=== PATIENT | female | born 1995 ===

== ENCOUNTER 2017-03-02 20:04 | Emergency (ER) | payer MEDICAID ==
[~2017-03-02 20:04] MED LIST: ATIVAN0.5 MG PO; HYDROCODON-ACE1 EAC4 PO; MAALOX DPS30 ML PO; SINGULAIR10 MG PO; TYLENOL EXTRA500 M1 PO; VENTOLIN HFA8 GM IH; ZOLOFT DPS50 MG PO
--- NOTE | 2017-03-04 04:09 | ER ---
ADMIT: 03/02/2017 RM/LOC: ER [facility] MR#: [id number] [address] [address] RENAE ALVARADO [address] [place] [address] Emergency Room Report SEX: F AGE: 21 : 1995 DATE: 03/02/2017 ADDENDUM: This patient comes to the ER because she is having shortness of breath. She has asthma. She ran out of her albuterol. On physical exam, she does have wheezing. She was given Decadron and a DuoNeb, which really relieved the shortness of breath. I wrote a prescription for prednisone. We will have her follow up with her primary. I also refilled her albuterol. Please see my T-sheet. PORSCHE Flaherty / Will Valenzuela MD / nasir JOB #: [id number] CC: Will Valenzuela MD, Attending Physician
[2017-03-14] MEDS ORDERED: PRENATAL VIT1 TAB PO (11:25)
[2017-03-14] MEDS ORDERED: ZANTAC DPS150 MG PO (11:26)
[2017-03-14] MEDS ORDERED: TUMS DPS500 MG PO (11:26)
[2017-03-14] MEDS ORDERED: PROMETRIUM200 MG (11:26)
[2017-06-25] MEDS ORDERED: PROAIR HFA8.5 GM IH (09:07)
[2017-06-25] MEDS ORDERED: PROVENTIL HFA6.7 GM IH (09:07)
[2017-06-25] MEDS ORDERED: ZOLOFT50 MG PO (09:07)
[2017-06-25] MEDS ORDERED: PRENATAL VITAM1 EAC6 PO (09:07)
[2017-06-25] MEDS ORDERED: TYLENOL EXTRA500 M1 PO (09:08)
[2017-06-25] MEDS ORDERED: FEOSOL-DPS325 MG PO (09:08)
[2017-06-25] MEDS ORDERED: FLAGYL-DPS500 MG PO (09:09)
== END 2017-03-02 21:20 | disposition home or self-care (01) ==
LOC: ER 20:04
DX: J45.901 Unspecified asthma with (acute) exacerbation (principal)

== ENCOUNTER 2017-03-11 22:40 | Observation (INO) | payer MEDICAID ==
[~2017-03-11] VITALS: Ht 162.6 cm; Wt 96.6 kg
--- NOTE | ~2017-03-11 | CO ---
ADMIT: 03/12/2017 RM/LOC: 217 [facility] MR#: [id number] 2620 [facility] [address] [place] [phone] RENAE ALVARADO [address] [place] [address] Consultation SEX: F AGE: 21 : 1995 DATE OF CONSULTATION: 03/12/2017 ATTENDING PHYSICIAN: Julio Lemus CONSULTING PHYSICIAN: Syeda Mcmillan MD HISTORY OF PRESENT ILLNESS: This is a 21-year-old G1, P0, with IUP at 24 weeks 5 days by 16-week ultrasound, presented last evening with complaints of pelvic pressure and loss of fluid. For the last several days, she had indicated that she had noticed that occasionally she would, when she was up on her feet at work, her underwear would be wet. She did not think she was losing urine. She does not endorse any contractions or vaginal bleeding and she does note good movement. Her has otherwise been uncomplicated. Upon presentation, cervical length was obtained and last night it was 1.4 cm. It was repeated this morning, it was 1.7 cm. AmniSure was negative x2. RADHA was 8.6 last night and 11.1 this morning. She did receive one dose of Rocephin for possible urinary tract infection last evening, and this morning the patient reports her pelvic pressure symptoms have completely resolved and denies any further symptoms of loss of fluid. PAST MEDICAL HISTORY: None. PAST SURGICAL HISTORY: None. SOCIAL HISTORY: She lives in [place], [place]. She denies any tobacco, alcohol, or drug use. MEDICATIONS: She takes vitamin daily. ALLERGIES: NO KNOWN DRUG ALLERGIES. FAMILY HISTORY: Noncontributory. The patient is . OB LABS: She sees Dr. Hollis in [place], [place] for her regular obstetrical care. Blood type is A positive. Antibody screen is negative. Rubella immune. VDRL is nonreactive. Urine culture is negative. Hepatitis B surface antigen is negative. HIV is negative. Ultrasound performed on 01/11/2017 indicates a gestational age of 16 weeks and 1 day with an EDC of 06/27/2017 and her ultimate due date is based off. She did have a normal anatomy scan at 20 weeks in [place]. PHYSICAL EXAMINATION: VITAL SIGNS: Blood pressure is 100/45, pulse is 94, respirations 16, and temperature is 96.7 degrees Fahrenheit. heart tones 135, moderate variability, positive accelerations (10 x 10). No decelerations noted. Hurt shows no contractions. GENERAL: The patient is in no acute distress. HEART: Regular rate and rhythm. No murmurs, rubs, or gallops. LUNGS: Clear to auscultation bilaterally to the bases. ABDOMEN: Gravid and nontender. ADMIT: 03/12/2017 RM/LOC: 217 [facility] MR#: [id number] [address] [place] [phone] [place] [address] Consultation SEX: F AGE: 21 : 1995 DIGITAL CERVICAL EXAM: Cervix is closed, about 50% effaced and -3 station, it is posterior and intermediate in consistency. EXTREMITIES: No significant edema. UA from last night was negative. UDS was negative. HIV was negative. GBS has been collected and is pending. Wet mount showed rare yeast. AmniSure was negative x2. ASSESSMENT AND PLAN: This is a 21-year-old G1, P0, with an intrauterine at 24 and 5/7th days. 1. Shortened cervix. Discussed she has past point of cerclage placement as she reached viability in greater than 24 weeks. Reviewed some evidence to support decreased risk of labor with micronized vaginal progesterone in women without prior and short cervix, if less than 24 weeks if continued to 36 weeks, and the patient is amenable to starting this. Given some effacement changes on digital examination, we will monitor for 24 hours and recheck cervix tomorrow. Given concern for , we will obtain followup ultrasound for growth today. Thank you for this interesting consultation. Syeda Mcmillan MD/ nasir JOB #: [id number] CC: Julio Lemus, Attending Physician Julio Lemus, Family Physician
[2017-03-14] MEDS ORDERED: PRENATAL VIT1 TAB PO (11:25)
[2017-03-14] MEDS ORDERED: ZANTAC DPS150 MG PO (11:26)
[2017-03-14] MEDS ORDERED: PROMETRIUM200 MG (11:26)
[2017-03-14] MEDS ORDERED: TUMS DPS500 MG PO (11:26)
--- NOTE | 2017-03-17 13:27 | DS ---
ADMIT: 03/12/2017 RM/LOC: 217 [facility] MR#: [id number] 2620 [facility] [address] [place], [place] [address] RENAE ALVARADO [facility] [address] [place] [address] Discharge Summary SEX: F AGE: 21 : 1995 ADMISSION DATE: 03/12/2017 DISCHARGE DATE: 03/13/2017 DIAGNOSES: 1. intrauterine on date of discharge of 24 weeks and 6 days by 16 week ultrasound. 2. Cervical shortening with cervical length on two separate ultrasounds during hospitalization of 1.4 cm and 1.7 cm. 3. Obesity. 4. GERD (gastroesophageal reflux disease). ADMITTING PHYSICIAN: Julio Lemus MD, Family Practice. CONSULTING PHYSICIAN: Syeda Mcmillan MD, TELEPHONE TECHNICIAN. HOSPITAL COURSE: This is a 21-year-old, G1, P0, who presented to [facility] on 03/11/2017 with complaints of pelvic pressure. Her FAISAL is 06/27/2017 by a 16-week ultrasound. She underwent a transvaginal ultrasound, which showed cervical length of 1.4 cm and an RADHA of 8.6 cm and fetus in vertex position. The scan was repeated the following morning and showed a cervical length of 1.7 cm and an RADHA of 11.1 cm. This time was in breech position. Until the same, had been uncomplicated. She had also presented with complaints of possible loss of fluid. Amnisure was performed twice and was negative both times. fibronectin was not able to be performed due to digital exams and sex prior to admission. Her urine was negative, UDS was negative, and HIV with testing as well. Wet mount did show rare yeast, and she was treated with Diflucan prior to discharge. She was started on vaginal Prometrium 200 mg at bedtime per vagina to reduce risk of , as she is at increased risk due to cervical shortening. Because she is greater than 24 weeks, she is not a candidate for cervical cerclage. On digital cervical exam, she was unchanged on examinations greater than 24 hours apart. Given improvement in symptoms and changed cervix, we will plan to discharge patient home. Did contact her physician's on-call partner prior to discharge and discussed the patient's case with him (Dr. Ludwig). She did have a follow-up growth scan performed in the hospital, which showed estimated weight of 799 g which is 11 pounds 12 ounces which is 65th percentile for 24 weeks, amniotic fluid index on that image was 9.8 cm, and the fetus was in breech position on that scan. DISCHARGE MEDICATIONS: 1. Vaginal Prometrium 200 mg at bedtime #30, no refills. She will need a refill of this and continue this until she is 36 weeks gestation or delivery if that occurs before. 2. Zantac 150 mg p.o. b.i.d., #60 no refills. She will need a refill of ADMIT: 03/12/2017 RM/LOC: 217 [facility] MR#: [id number] [address] [address] RENAE ALVARADO [address] [place] [address] Discharge Summary SEX: F AGE: 21 : 1995 this as well. She is to resume her albuterol inhaler as needed for symptoms. DISCHARGE INSTRUCTIONS: Patient was instructed to do modified bed rest. She declined a note for work. She was also instructed to practice pelvic rest for the remainder of her or until she reaches 36 weeks. Reviewed with patient the importance of presenting to care urgently if she develops any symptoms of increased pelvic pressure, vaginal bleeding, loss of fluid, or decreased movement. She understands that there is a risk for increased labor or delivery with short cervix. Given no cervical change, Celestone for lung maturity was not indicated during current hospitalization. Syeda Mcmillan MD/ adrien JOB #: [id number] CC: Julio Lemus MD, Attending Physician Julio Lemus MD, Family Physician
--- NOTE | 2017-03-29 08:25 | HP ---
ADMIT: 03/12/2017 RM/LOC: 217 [facility] MR#: [id number] [address] [facility] [address] [place] [phone] RENAE ALVARADO [address] [place] [address] History and Physical SEX: F AGE: 21 : 1995 DATE OF SERVICE: CHIEF COMPLAINT: Bladder pressure, urinary frequency, and tailbone pain. HISTORY OF PRESENT ILLNESS: This is a 21-year-old, 1, para 0, with an intrauterine at 24 weeks 5/7 days by EDC of 06/27/2017 by early ultrasound, presented to Labor and Delivery last night for the above complaints. The patient lives in [place]. Her preconstruction manager is Dr. Hollis, family physician, in [place]. She states that since evening, she has been having symptoms of increased pressure in her bladder. She states that she has pressure on her bladder, feels like she has to go but when she tries to go to the bathroom, nothing comes out often times. She also states that she started leaking some fluid on . She was unsure if this was pee discharge or amniotic fluid. She says this has been happening intermittently over the last 48 hours. She has also complained of some tailbone pain on the coccyx area. She states it hurts when she stands up or sits down. She is unsure if this is related. She denies any lower abdominal pains that come and go. She did think she had slight decreased movement yesterday. No vaginal bleeding. No other major complications with this thus far. Because of these symptoms, she presented herself to Labor and Delivery last night. The patient has been monitored overnight. No signs of contractions. heart tones have been reassuring. Workup showed negative AmniSure. UA did show 1+ protein, but otherwise was fairly negative. We did do a limited ultrasound showing an RADHA borderline at 8.6, and a cervical length of 1.4 cm with funneling. The patient was admitted with fluids, and is currently comfortable. She denies any complaints at this point in time. No lower pelvic pressure. No symptoms of contractions. PAST MEDICAL HISTORY: 1. Obesity. 2. Depression. 3. Mild intermittent asthma. MEDICATIONS: 1. vitamin. 2. Unknown depression medication. 3. An inhaler. ALLERGIES: NO KNOWN DRUG ALLERGIES. SOCIAL HISTORY: No alcohol, drug, or tobacco use. The patient works as a cashier host/hostess. FAMILY HISTORY: Mom did have some labors it sounded like. Otherwise noncontributory. REVIEW OF SYSTEMS: A 10-point review of systems obtained, per HPI, otherwise ADMIT: 03/12/2017 RM/LOC: 217 [facility] MR#: [id number] [address] [address] RENAE ALVARADO [address] [place] [address] History and Physical SEX: F AGE: 21 : 1995 negative. PHYSICAL EXAMINATION: VITAL SIGNS: Blood pressure 135/87, pulse 110, respirations 16, temperature 96.8. GENERAL: Alert and oriented x3. Does not appear in acute distress. Does not appear uncomfortable. HEENT: Pupils are equal, round, and reactive. Extraocular muscles intact. Throat clear. Trachea midline. HEART: Regular rate and rhythm. No murmurs, rubs, or gallops. LUNGS: Clear to auscultation bilaterally. No wheezes or crackles. ABDOMEN: Soft, nontender, and nondistended. No organomegaly. EXTREMITIES: With trace to 1+ edema. Symmetric. NEUROLOGICAL: Intact. No focal deficits. LABORATORY DATA: labs: A positive, antibody negative, GBS unknown, HIV negative. AmniSure negative, drug abuse screen negative. Urinalysis, 1+ protein. Ultrasound, RADHA of 8.6, cervical length 1.4 cm with funneling. ASSESSMENT: This is a 21-year-old with: 1. Cervical insufficiency greater than 24 weeks without apparent labor. 2. Borderline amniotic fluid index/oligohydramnios. 3. Intrauterine at 24 weeks 5/7 days. 4. Obesity. 5. Coccydynia. 6. Right flank pain this morning, currently gone. 7. Depression. 8. Mild intermittent asthma. PLAN: The patient has been admitted with fluids. We will recheck RADHA, cervical length, well being here this morning. Certainly concerned for cervical length. We will consult Obstetrics for further recommendations. As she is greater than 24 weeks, likely not a candidate for cerclage, and likely will need progesterone. With her cervical length being less than 2 cm, this concerns for delivery enough that no fFN was obtained at this time. We will see Obstetrics recommendations on steroids and further management. Appreciate their input in advance. Julio Lemus MD/ nasir JOB #: [id number] CC: Julio Lemus, Attending Physician Julio Lemus, Family Physician
--- NOTE | 2017-03-29 08:25 | DS ---
ADMIT: 03/12/2017 RM/LOC: 217 [facility] MR#: [id number] 2620 [facility] [address] [place], [place] [address] RENAE ALVARADO [address] [place] [address] General Discharge Summary SEX: F AGE: 21 : 1995 ADMISSION DATE: 03/12/2017 DISCHARGE DATE: 03/13/2017 FINAL DIAGNOSES: 1. Cervical insufficiency. 2. Pelvic pressure. 3. Intrauterine at 24 to 25 weeks. 4. Mild intermittent asthma. 5. Obesity. 6. Gastroesophageal reflux. 7. Lower back pain likely musculoskeletal. CONSULTATIONS: Obstetrics with Syeda Mcmillan MD LABS AND IMAGING: Please refer to hospital record. Cervical length was 1.4 cm with funneling. RADHA from 8 to 9. AmniSure negative x2. REASON FOR ADMISSION: Please refer to dictated H and P. Briefly, this is a patient who follows with Dr. Hollis for her OB care in [place]. She presented late on the evening on Tuesday with complaints of increased pelvic pressure and leakage of fluid. The patient was admitted for further workup and management. HOSPITAL COURSE: The patient was admitted with routine orders. She had an AmniSure x2, which was negative. Sterile spec, which was negative for wet prep. She did have an ultrasound to assess RADHA, which was slightly low but within normal limits. During this limited ultrasound, she also had noted shortened cervical length of approximately 1.4 cm with funneling. Therefore, because of this, Dr. Syeda Mcmillan was consulted. Dr. Mcmillan evaluated the patient. The patient did not appear to be in any labor. The patient was started on transvaginal progesterone. We will monitor over the next 24 hours with continued no signs of labor. There were no other major events during hospitalization. By day of discharge, the patient was in stable condition. She did have an ultrasound for anatomy showing her to be about 24 weeks and 5/7 days, 65% of weight, heart rate of 143, RADHA of 9.8 cm. Breech presentation. Group B strep obtained and was negative. She did have a kidney ultrasound as well to rule out stone as she was having right flank pain, which was negative thought to be musculoskeletal in nature. No other ADMIT: 03/12/2017 RM/LOC: 217 [facility] MR#: [id number] [address] [address] RENAE ALVARADO [address] [place] [address] General Discharge Summary SEX: F AGE: 21 : 1995 major events during hospitalization. Dr[address] Mcmillan was in agreement with discharge. DISCHARGE INSTRUCTIONS: The patient was instructed to take medications as prescribed. Follow up with her primary care provider/rails developer next week. Discussed signs and symptoms of labor including contractions, worsening pelvic pain, premature rupture of membranes, etc. The patient voiced agreement and understanding of and precautions. Discharge activities took approximately 35 minutes. Julio Lemus MD/ nasir JOB #: [id number] CC: Julio Lemus MD, Attending Physician Julio Lemus MD, Family Physician Nusrat Hollis MD
[2017-06-25] MEDS ORDERED: PRENATAL VITAM1 EAC6 PO (09:07)
[2017-06-25] MEDS ORDERED: PROAIR HFA8.5 GM IH (09:07)
[2017-06-25] MEDS ORDERED: ZOLOFT50 MG PO (09:07)
[2017-06-25] MEDS ORDERED: PROVENTIL HFA6.7 GM IH (09:07)
[2017-06-25] MEDS ORDERED: FEOSOL-DPS325 MG PO (09:08)
[2017-06-25] MEDS ORDERED: TYLENOL EXTRA500 M1 PO (09:08)
[2017-06-25] MEDS ORDERED: FLAGYL-DPS500 MG PO (09:09)
== END 2017-03-13 11:55 | disposition home or self-care (01) ==
LOC: BC 22:40 → 2LDRP 22:40 → BC 22:43 → 2LDRP 22:43 → BC 03-12 02:15 → 2LDRP 03-13 11:55
PROVIDERS: ADMIT Family Medicine
DX: O26.872 Cervical shortening, second trimester (principal); O60.02 Preterm labor without delivery, second trimester; Z3A.24 24 weeks gestation of pregnancy; E66.9 Obesity, unspecified; K21.9 Gastro-esophageal reflux disease without esophagitis; J45.20 Mild intermittent asthma, uncomplicated; F32.9 Major depressive disorder, single episode, unspecified; Z68.36 Body mass index [BMI] 36.0-36.9, adult

== ENCOUNTER 2017-07-31 20:10 | Emergency (ER) | payer MEDICAID ==
[~2017-07-31 20:10] MED LIST changes: +FEOSOL-DPS325 MG PO; +FLAGYL-DPS500 MG PO; +PRENATAL VIT1 TAB PO; +PRENATAL VITAM1 EAC6 PO; +PROAIR HFA8.5 GM IH; +PROMETRIUM200 MG; +PROVENTIL HFA6.7 GM IH; +TUMS DPS500 MG PO; +ZANTAC DPS150 MG PO; +ZOLOFT50 MG PO
--- NOTE | 2017-08-01 17:13 | ER ---
ADMIT: 07/31/2017 RM/LOC: ER [facility] MR#: [id number] [address] [address] RENAE ALVARADO [address] [place] [address] Emergency Room Report SEX: F AGE: 21 : 1995 DATE: 07/31/2017 HISTORY OF PRESENT ILLNESS: The patient is a 21-year-old, seen originally by Jovana Nicole, diagnosed with ear pain. She mentioned that she felt like she was going to pass out. She was dizzy. Further testings were done including a test as she reports being sexually active. PHYSICAL EXAMINATION: VITAL SIGNS: Show a blood pressure of 131/87, heart rate of 85, respirations of 18, and temperature of 100.6. EMERGENCY DEPARTMENT COURSE: An EKG was done, which shows sinus tachycardia at 113. Her urine test was negative. White count 12.2, platelet count 403. She received some fluids and she improved. She was given a 1st dose of amoxicillin and released home with a clinical diagnosis of otitis media, bilateral. INSTRUCTIONS: See T-sheet. PORSCHE Shirley / Kulwant Todd MD / melaniel JOB #: [id number] CC: Kulwant Todd MD, Attending Physician Alen Sneed MD, Family Physician
== END 2017-07-31 22:10 | disposition home or self-care (01) ==
LOC: ER 20:10
DX: H66.93 Otitis media, unspecified, bilateral (principal); F32.9 Major depressive disorder, single episode, unspecified